=== PATIENT | female | born 1935 | race Two or more races ===

== ENCOUNTER → 2017-03-25 | Outpatient (CLI) | payer MEDICARE, MEDICAID ==
[2017-03-25 10:58] LABS: Basophils # (auto) 0 uL; Basophils % (auto) 0.6 % (0.0-2.0); Eosinophils # (auto) 0.1 uL; Eosinophils % (auto) 1.1 % (0.0-7.0); Hematocrit 44.4 % (36.0-46.0); Lymphocytes # (auto) 2.6 uL; Lymphocytes % (auto) 33.1 % (10.0-50.0); Mean Corpuscular Hemoglobin 30.7 pg (28.0-32.0); Mean Corpuscular Hgb Conc. 33.8 g/dL (32.0-36.0); Mean Corpuscular Volume 90.9 fL (80.0-100.0); Monocytes # (auto) 0.5 uL; Monocytes % (auto) 6.4 % (0.0-12.0); Neutrophils # (auto) 4.5 uL; Neutrophils % (auto) 58.8 % (37.0-80.0); Nucleated Red Blood Cells % 0.1 %; Platelet Count (auto) 211 10^3/uL (140-450); Red Blood Cells 4.88 10^6/uL (4.0-5.20); Red Cell Distribution Width 13.4 % (11.8-14.3); White Blood Cell 7.7 10^3/uL (4.4-10.8)
[2017-03-25 12:47] LABS: Albumin 3.7 g/dL (3.4-5.0); BUN/Creatinine Ratio 29.9; Bilirubin, Total 1.5 mg/dL (0.2-1.0); Calcium 9.2 mg/dL (8.5-10.1); Potassium 4.3 mmol/L (3.5-5.1); Total Protein 7.3 g/dL (6.4-8.2)
== END | disposition home or self-care (01) ==
LOC: LAB 10:23
PROVIDERS: ATTEND Nurse Practitioner
DX: I10 Essential (primary) hypertension (principal); E78.5 Hyperlipidemia, unspecified; M79.1 Myalgia; E16.2 Hypoglycemia, unspecified
CPT/HCPCS: 36415; 80053; 80061; 82306; 83036; 84443; 85025

== ENCOUNTER 2024-04-17 05:30 | Inpatient (IN) | payer MEDICAID, MEDICARE ==
[2024-04-17] VITALS (7 sets, daily range): BP systolic 99–101; BP diastolic 50–58; PULSE 65–73; RESP 15–20; TEMP 98.4–98.9; O2SAT 95–100
[~2024-04-17] VITALS: Ht 157.5 cm; Wt 52.6 kg
[2024-04-17] MEDS ORDERED: MORPHINE SULFATE INJ 2 MG/ml SYRG IV ONE (06:45)
[2024-04-17 07:04] LABS: Basophils # (auto) 0 10 ^3/uL (0-0.2); Eosinophils # (auto) 0 10 ^3/uL (0-0.8); Eosinophils % (auto) 0.2 % (0.0-7.0); Hemoglobin 9.3 g/dL (12.2-16.2); Lymphocytes # (auto) 0.8 10 ^3/uL (0.4-5.4); Lymphocytes % (auto) 5.9 % (10.0-50.0); Mean Corpuscular Hemoglobin 22.5 pg (28.0-32.0); Red Blood Cells 4.13 10^6/uL (4.0-5.20)
[2024-04-17 07:05] LABS: Basophils % (auto) 0.2 % (0.0-2.0); Hematocrit 30.1 % (36.0-46.0); Mean Corpuscular Hgb Conc. 30.9 g/dL (32.0-36.0); Mean Corpuscular Volume 72.8 fL (80.0-100.0); Monocytes # (auto) 0.7 10 ^3/uL (0-1.3); Monocytes % (auto) 5.2 % (0.0-12.0); Neutrophils % (auto) 88.5 % (37.0-80.0); Platelet Count (auto) 410 10^3/uL (140-450); Red Cell Distribution Width 16.2 % (11.8-14.3); White Blood Cell 13.5 10^3/uL (4.4-10.8)
[2024-04-17] MEDS: SODIUM CHLORIDE 0.9% 1,000 ML IV ONE (07:20)
[2024-04-17] MEDS: ONDANSETRON HCL 4 MG/2 ML VIAL IV ONE (07:22)
[2024-04-17] MEDS: MORPHINE SULFATE 4 MG/ML SYR/VIAL IV ONE (07:22)
[2024-04-17 07:55] LABS: Urine Bacteria FEW /hpf (None Seen); Urine Blood 3+ /uL (Negative); Urine Protein, UAD Negative (Negative); Urine Specific Gravity 1.025 (1.001-1.035); Urine Squamous Epithelial Cell FEW /hpf (<5); Urine Urobilinogen Normal (Negative); Urine WBC 1 /HPF (0-5)
[2024-04-17 08:00] LABS: Urine Clarity Hazy (Clear); Urine Color Yellow (Yellow)
--- NOTE | 2024-04-17 10:03 | DVH ---
Procedure: CT CT AB PEL WITH IV CON ONLY 04/17/2024 09:11 AM Indication: lower abdominal pain Comparison Study: None Technique: Axial images were obtained and reformatted in coronal and sagittal planes. All CT scans at this medical facility are performed using dose modulation techniques as appropriate t o a performed exam including the following: Automated exposure control was utilized; adjustment of th e MA and/or KV according to patient size; and use of iterative reconstruction technique. CT Dose: CTDI volume is 8.15 mGy. Dose-length product is 422.91 mGy*cm FINDINGS: Lower chest: Mild left basilar subsegmental atelectasis. No pleural effusion. No pneumothorax. Hepatobiliary: Unremarkable. Spleen: Unremarkable. Pancreas: Unremarkable. Adrenal Glands: Unremarkable. tract: The kidneys are normal in size bilaterally without hydronephrosis or nephrolithiasis. The urinary bladder is unremarkable. GI tract: The stomach is grossly normal in appearance. No evidence of small bowel obstruction. The la rge bowel is unremarkable. Dilated appendix measuring 9 mm in caliber with mural enhancement and mod erate adjacent free fluid which extends to the pelvis the left lower quadrant. No appendicoliths note d. Lymphatics: No mesenteric, retroperitoneal or periportal lymphadenopathy. Vasculature: The abdominal aorta is normal in in caliber. Pelvic Organs: Unremarkable. Bones/soft tissues: No acute abnormality. Other: None. IMPRESSION: 1. Acute non complicated appendicitis. Recommend surgical consultation. Acute Result: Acute appendicitis Findings discussed with BELINDA FONTANEZ at 04/17/2024 09:57 AM, and acknowledged receipt and understandin g of the findings. ..
[2024-04-17] MEDS ORDERED: metroNIDAZOLE 500MG/100ML 100 ML IV ONE (10:15)
[2024-04-17] MEDS ORDERED: ceFAZolin 2 GM/D5W50ml 50 ML IV ONE ×2 (10:15→11:13)
--- NOTE | 2024-04-17 10:23 | ED.PDOC ---
GI ASSESSMENT HPI Comments 19-year-old with a no MHx lives with grandma presents with a chief complaint of abdominal pain x2 months. Symptoms have waxed and waned with no specific pattern but patient reports worsening pain that started yesterday at 8:00 p.m. and has been persistent since Pain is located to the left and right lower quad rants and the pain is described as sharp cramping sensation. Unable to get adequate relief with [id number] pain medications. Patient also notes six vomiting episodes that started this morning at 1:00 a.m.. Associated with mild nausea. She is on her current menstrual cycle. It started on Wednesday Denies sick contact with similar symptoms Denies new foods/medications Denies family history of GI cancer Denies urgency, frequency, hematuria Denies vaginal discharge Chief Complaint: Pelvic Pain Time Seen by MD: 06:31 Reviewed Notes: Nurses Notes, Medications, Allergies Allergies: Coded Allergies: NO KNOWN ALLERGIES (Unverified , 04/17/24) Information Source: Patient Mode of Arrival: Wheelchair All Other Systems: Reviewed and Negative (per hpi) Physical Exam General Appearance: No Apparent Distress, Normal HEENT: Normal ENT Inspection, Pharynx Normal, TMs Normal Neck: Full Range of Motion, Non-Tender, Normal, Normal Inspection Respiratory: Chest Non-Tender, Lungs Clear, No Accessory Muscle Use, No Respiratory Distress, Normal Breath Sounds Cardiovascular: No Murmur, No Gallop, Regular Rate/Rhythm Breast Exam: Deferred Gastrointestinal: No Organomegaly, No Pulsatile Mass, Normal Bowel Sounds, Soft, Tenderness (Lower quads.) Genitalia: Deferred Pelvic: Deferred Rectal: Deferred Extremities: No calf tenderness, Normal capillary refill, Normal inspection, Normal range of motion, Non-tender, No pedal edema Musculoskeletal : Apperance: Normal Neurologic: Alert, No Motor Deficits, Normal Affect, Normal Mood, No Sensory Deficits Cerebellar Function: Normal Reflexes: Normal Skin: Dry, Normal Color, Warm Lymphatic: No Adenopathy Was a procedure done? Was a procedure done?: No GI differential Dx Differential Diagnosis: Appendicitis, Diverticular disease, Gastroenteritis, UTI X-Ray, Labs, Meds, VS Vital Signs Date Time Temp Pulse Resp B/P (MAP) Pulse Ox O2 Delivery O2 Flow Rate FiO2 04/17/24 08:18 61 04/17/24 07:51 62 16 105/56 04/17/24 07:44 73 16 100 Room Air* 0 21 04/17/24 07:44 98.0 73 16 110/59 (76) 100 98.0 04/17/24 07:22 82 15 110/59 04/17/24 06:10 70 15 100 Room Air* 0 21 04/17/24 06:06 97.9 70 15 109/64 (79) 100 97.9 04/17/24 05:44 98.0 64 16 101/46 (64) 100 Lab Test 04/17/24 07:05 04/17/24 06:47 Range/Units Urine Color Yellow Yellow Urine Clarity Hazy H Clear Urine pH 7.0 5.0-9.0 Urine Specific [place] 1.025 1.001-1.035 Urine Protein Negative Negative Urine Ketones 2+ H Negative Urine Blood 3+ H Negative /uL Urine Nitrite Negative Negative Urine Bilirubin Negative Negative Urine Urobilinogen Normal Negative mg/dL Urine Leukocyte Esterase Negative Negative /uL Urine RBC 28 0 - 4 /hpf Urine Microscopic WBC 1 0-5 /HPF Urine Squamous Epithelial Cells Few <5 /hpf Urine Bacteria Few H None Seen /hpf Urine Glucose 2+ H Normal mg/dL Urine Test Negative Negative White Blood Count 13.5 H 4.4-10.8 10^3/uL Red Blood Count 4.13 4.0-5.20 10^6/uL Hemoglobin 9.3 L 12.2-16.2 g/dL Hematocrit 30.1 L 36.0-46.0 % Mean Corpuscular Volume 72.8 L 80.0-100.0 fL Mean Corpuscular Hemoglobin 22.5 L 28.0-32.0 pg Mean Corpuscular Hemoglobin Concent 30.9 L 32.0-36.0 g/dL Red Cell Distribution Width 16.2 H 11.8-14.3 % Platelet Count 410 140-450 10^3/uL Mean Platelet Volume 6.6 L 6.9-10.8 fL Neutrophils (%) (Auto) 88.5 H 37.0-80.0 % Lymphocytes (%) (Auto) 5.9 L 10.0-50.0 % Monocytes (%) (Auto) 5.2 0.0-12.0 % Eosinophils (%) (Auto) 0.2 0.0-7.0 % Basophils (%) (Auto) 0.2 0.0-2.0 % Neutrophils # (Auto) 12.0 H 1.6-8.6 10 ^3/uL Lymphocytes # (Auto) 0.8 0.4-5.4 10 ^3/uL Monocytes # (Auto) 0.7 0-1.3 10 ^3/uL Eosinophils # (Auto) 0 0-0.8 10 ^3/uL Basophils # (Auto) 0 0-0.2 10 ^3/uL Nucleated Red Blood Cells 0.0 % Sodium Level Pending Potassium Level Pending Chloride Level Pending Carbon Dioxide Level Pending Anion Gap Pending Blood Urea Nitrogen Pending Creatinine Pending Glomerular Filtration Rate Calc Pending BUN/Creatinine Ratio Pending Serum Glucose Pending Lactic Acid Level 1.0 0.4-2.0 mmol/L Calcium Level Pending Current Medications Medications (Trade) Dose Ordered Sig/Alexy Route Start Time Stop Time Status Last Admin Sodium Chloride 1,000 ml @ 1,000 mls/hr Q1H ONCE IV 04/17/24 06:45 04/17/24 07:44 DC 04/17/24 07:20 Ondansetron HCl (Zofran) 4 mg ONCE ONCE IV 04/17/24 06:45 04/17/24 06:49 DC 04/17/24 07:22 Morphine Sulfate 4 mg ONCE ONCE IV 04/17/24 07:00 04/17/24 07:01 DC 04/17/24 07:22 X-Ray, Labs, Meds, VS Comment 19-year-old with a no MHx lives with grandma presents with a chief complaint of abdominal pain x2 months. Parents with concern but not limited to overt torsion, abscess, ruptured cyst, diverticulitis, appendicitis Labs and imaging were ordered CT shows appendicitis The patient presents with s/s consistent with dx. Patients work up was remarkable for acute noncomplicated appendicitis In the emergency department received morphine for her pain. Received one bolus normal saline for hydration. Patient was then started on Flagyl and Ancef The patient's workup reveals that surgical consult as needed and will be admitted Patient verbalized understanding of the above and is awaiting further evaluation by the admitting service. Case discussed with Dr Andrews and agrees for admission and ED evaluation. Time of 1ST Reevaluation: 10:15 Reevaluation 1ST: Improved Patient Education/Counseling: Diagnosis, Treatment Family Education/Counseling: Diagnosis, Treatment Departure 1 Departure Time of Disposition: 10:12 Impression: Primary Impression: Appendicitis Qualified Codes: K35.80 - Unspecified acute appendicitis Disposition: 09 ADMITTED INPATIENT Condition: Fair Critical Care Note Critical Care Time?: No Stability Stability form required: No Heart Score Heart Score: Heart Score Response (Comments) Value History N/A 0 EKG N/A 0 Age N/A 0 Risk Factors N/A 0 Troponin N/A 0 Total 0 BELINDA FONTANEZ NP Apr 17, 2024 10:23
[2024-04-17] MEDS ORDERED: SODIUM CHLORIDE 0.9% 1,000 ML IV ONE ×3 (10:30→12:30)
[2024-04-17 10:34] LABS: Chloride 105 mmol/L (98-107); Sodium 137 mmol/L (136-145)
[2024-04-17 10:35] LABS: Anion Gap 10 (5-15); Calcium 9.6 mg/dL (8.7-10.4); Carbon Dioxide 22 mmol/L (20-31)
[2024-04-17 10:40] LABS: BUN/Creatinine Ratio 15.8 (10.0-20.0); Blood Urea Nitrogen 9 mg/dL (9-23)
[2024-04-17 10:41] LABS: Glucose 117 mg/dL (74-106)
[2024-04-17] MEDS: PIPERACILLIN-TAZOB 3.375GM 100 ML IV ONE (11:03)
[2024-04-17] MEDS: IOHEXOL 300 MG/ML 100ML BOTTLE IJ ONE (11:12)
[2024-04-17] MEDS ORDERED: HYDROcodone-ACET 5/325MG TAB PO PRN (11:15)
[2024-04-17] MEDS ORDERED: ONDANSETRON HCL 4 MG/2 ML VIAL IV PRN ×2 (11:15→11:30)
[2024-04-17] MEDS ORDERED: DOCUSATE SOD 100 MG CAP PO PRN (11:15)
[2024-04-17] MEDS ORDERED: ACETAMINOPHEN 325 MG TAB PO PRN ×2 (11:15→11:30)
[2024-04-17] MEDS ORDERED: SODIUM CHLORIDE 0.9% 1,000 ML IV SCH ×2 (11:15→11:30)
--- NOTE | 2024-04-17 11:26 | DVHHP2 ---
History of Present Illness Reason for Visit: Abdominal pain History of Present Illness Betzaida Gutierrez is an 19-year-old female with no significant past medical history, who came in for abdominal pain. Patient states she has had intermittent abdominal pain for about 2 months. She states she went to [facility] the end of January beginning of February and was told something is infected, but she couldn't remember what. Last night about 1999 she was feeling bloated, but not in much pain. Around 010 she was woken up by severe pain with associated nausea and vomiting and came to the ER. Past Surgical History: Other (left breast lumpectomy) Smoke: No ALCOHOL: none Drugs: None Lives: with Family Domestic Violence: Neg Review of Systems Constitutional: No: Fever, Chills, Sweats, Weakness, Malaise, Other Eyes: No: Pain, Vision change, Conjunctivae inflammation, Eyelid inflammation, Other, Redness ENT: No: Ear pain, Ear discharge, Nose pain, Nose discharge, Nose congestion, Mouth pain, Mouth swelling, Throat pain, Throat swelling, Other Respiratory: No: Cough, Dry, Shortness of breath, SOB with excertion, Wheezing, Hemoptysis, Pleuritic Pain, Sputum, Wheezing, Other Cardiovascular: No: Chest Pain, Palpitations, Orthopnea, Paroxysmal Noc. Dyspnea, Edema, Lt Headedness, Other Gastrointestinal: Nausea, Vomiting, Abdominal Pain; No: Diarrhea, Constipation, Melena, Hematochezia, Other Genitourinary: No Dysuria, No Frequency, No Incontinence, No Hematuria, No Retention, No Other Musculoskeletal: No: other, neck pain, shoulder pain, arm pain, back pain, hand pain, leg pain, foot pain Skin: No: Rash, Lesions, Jaundice, Bruising, Other Neurological: No: Weakness, Numbness, Incoordination, Change in speech, Confusion, Seizures, Other Allergies: Coded Allergies: NO KNOWN ALLERGIES (Unverified , 04/17/24) Medications Current Medications Medications Dose Ordered Sig/Alexy Route Start Time Stop Time Status Last Admin Dose Admin Sodium Chloride 1,000 ml @ 100 mls/hr Q10H IV 04/17/24 11:15 UNV Acetaminophen/ Hydrocodone Bitart 1 tab Q4HP PRN PO 04/17/24 11:15 UNV Ondansetron HCl 4 mg Q4HP PRN IV 04/17/24 11:15 UNV Docusate Sodium 100 mg BIDPRN PRN PO 04/17/24 11:15 UNV Acetaminophen 650 mg Q6HP PRN PO 04/17/24 11:15 UNV Piperacillin Sod/ Tazobactam Sod 100 ml @ 25 mls/hr Q8HR IV 04/17/24 14:00 UNV Exam Vital Signs Vital Signs Date Time Temp Pulse Resp B/P (MAP) Pulse Ox O2 Delivery O2 Flow Rate FiO2 04/17/24 08:18 61 04/17/24 07:51 16 105/56 04/17/24 07:44 100 Room Air* 0 21 04/17/24 07:44 98.0 98.0 General Appearance: Alert, Oriented X3, Cooperative, moderate distress HEENT: Atraumatic, PERRLA Respiratory: Clear to auscultation, Normal air movement Cardiovascular: Regular rate, Normal S1, Normal S2, No murmurs Abdominal: Normal bowel sounds, Soft, Other (lower quadrant abdominal pain) Extremities: No clubbing, No cyanosis, No edema, Normal pulses, No tenderness/swelling Skin: No rashes, No breakdown, No significant lesion Neuro: Normal gait, Normal speech, Strength at 5/5 X4 ext Psych/Mental Status: Mental status NL, Mood NL Labs/Xrays Labs Test 04/17/24 07:05 04/17/24 06:47 Range/Units Urine Color Yellow Yellow Urine Clarity Hazy H Clear Urine pH 7.0 5.0-9.0 Urine Specific [place] 1.025 1.001-1.035 Urine Protein Negative Negative Urine Ketones 2+ H Negative Urine Blood 3+ H Negative /uL Urine Nitrite Negative Negative Urine Bilirubin Negative Negative Urine Urobilinogen Normal Negative mg/dL Urine Leukocyte Esterase Negative Negative /uL Urine RBC 28 0 - 4 /hpf Urine Microscopic WBC 1 0-5 /HPF Urine Squamous Epithelial Cells Few <5 /hpf Urine Bacteria Few H None Seen /hpf Urine Glucose 2+ H Normal mg/dL Urine Test Negative Negative White Blood Count 13.5 H 4.4-10.8 10^3/uL Red Blood Count 4.13 4.0-5.20 10^6/uL Hemoglobin 9.3 L 12.2-16.2 g/dL Hematocrit 30.1 L 36.0-46.0 % Mean Corpuscular Volume 72.8 L 80.0-100.0 fL Mean Corpuscular Hemoglobin 22.5 L 28.0-32.0 pg Mean Corpuscular Hemoglobin Concent 30.9 L 32.0-36.0 g/dL Red Cell Distribution Width 16.2 H 11.8-14.3 % Platelet Count 410 140-450 10^3/uL Mean Platelet Volume 6.6 L 6.9-10.8 fL Neutrophils (%) (Auto) 88.5 H 37.0-80.0 % Lymphocytes (%) (Auto) 5.9 L 10.0-50.0 % Monocytes (%) (Auto) 5.2 0.0-12.0 % Eosinophils (%) (Auto) 0.2 0.0-7.0 % Basophils (%) (Auto) 0.2 0.0-2.0 % Neutrophils # (Auto) 12.0 H 1.6-8.6 10 ^3/uL Lymphocytes # (Auto) 0.8 0.4-5.4 10 ^3/uL Monocytes # (Auto) 0.7 0-1.3 10 ^3/uL Eosinophils # (Auto) 0 0-0.8 10 ^3/uL Basophils # (Auto) 0 0-0.2 10 ^3/uL Nucleated Red Blood Cells 0.0 % Sodium Level 137 136-145 mmol/L Potassium Level 4.0 3.5-5.1 mmol/L Chloride Level 105 98-107 mmol/L Carbon Dioxide Level 22 20-31 mmol/L Anion Gap 10 5-15 Blood Urea Nitrogen 9 9-23 mg/dL Creatinine 0.57 0.550-1.02 mg/dL Glomerular Filtration Rate Calc 135 >90 mL/min BUN/Creatinine Ratio 15.8 10.0-20.0 Serum Glucose 117 H 74-106 mg/dL Lactic Acid Level 1.0 0.4-2.0 mmol/L Calcium Level 9.6 8.7-10.4 mg/dL Procedure: CT CT AB PEL WITH IV CON ONLY 04/17/2024 09:11 AM FINDINGS: Lower chest: Mild left basilar subsegmental atelectasis. No pleural effusion. No pneumothorax. Hepatobiliary: Unremarkable. Spleen: Unremarkable. Pancreas: Unremarkable. Adrenal Glands: Unremarkable. tract: The kidneys are normal in size bilaterally without hydronephrosis or nephrolithiasis. The urinary bladder is unremarkable. GI tract: The stomach is grossly normal in appearance. No evidence of small bowel obstruction. The large bowel is unremarkable. Dilated appendix measuring 9 mm in caliber with mural enhancement and moderate adjacent free fluid which extends to the pelvis the left lower quadrant. No appendicoliths noted. Lymphatics: No mesenteric, retroperitoneal or periportal lymphadenopathy. Vasculature: The abdominal aorta is normal in in caliber. Pelvic Organs: Unremarkable. Bones/soft tissues: No acute abnormality. Other: None. IMPRESSION: 1. Acute non complicated appendicitis. Recommend surgical consultation. Acute Result: Acute appendicitis Assessment/Plan Assessment/Plan Assessment: Appendicitis, UTI, Plan: Admit to Med-Surg, Surgical consult, IV antibiotics, IV hydration, Pain management, NPO, Plan discussed with: Patient My Orders Orders - JEAN PIERRE WEBBER Procedure Category Date Status Time Admit ADMIT 04/17/24 Transmitted 11:09 Code Status CODE 04/17/24 Transmitted 11:09 Sodium Chloride 0.9% PHA 04/17/24 Logged 11:15 Hydrocodone-Acet PHA 04/17/24 Logged 5/325mg Tab ([place] 11:15 Ondansetron Hcl PHA 04/17/24 Logged (Zofran) 11:15 Docusate Sodium PHA 04/17/24 Logged Capsule (Colace 11:15 Complete Blood Count LAB 04/18/24 Verified 04:00 Comprehensive LAB 04/18/24 Verified Metabolic Panel 04:00 Condition: Serious KAYLEY 04/17/24 In Process 11:09 Acetaminophen Tablet PHA 04/17/24 Logged (Tylenol Tablet) 11:15 Zosyn Extended PHA 04/17/24 Transmitted Infusion 14:00 Date of Service: Apr 17, 2024 Billing Provider: JEAN PIERRE WEBBER Common Visit Codes: [id number] INP/OBS CARE (HIGH) JEAN PIERRE WEBBER Apr 17, 2024 11:26
[2024-04-17] MEDS: metroNIDAZOLE 500MG/100ML 100 ML IV ONE (11:50)
--- NOTE | 2024-04-17 12:16 | DVHINCON2 ---
Date of service: Apr 17, 2024 History of Present Illness 19-year-old otherwise healthy female complaining of one day history of bilateral lower quadrant abdominal pain especially in the right lower quadrant associated with nausea. Patient denies any fevers or chills. Patient had a similar pain in the past was seen at [facility]. At the time she was told that she had some kind of an inflammation that was not appendicitis was given oral antibioti cs which resolved. Past Medical History None Past Surgical History Left breasts biopsy Family History Noncontributory Social History No alcohol, tobacco, IV drug use Allergies: Coded Allergies: NO KNOWN ALLERGIES (Unverified , 04/17/24) Current Medications Current Medications Medications (Trade) Dose Ordered Sig/Alexy Route PRN Reason Start Time Stop Time Status Last Admin Sodium Chloride 1,000 ml @ 100 mls/hr Q10H IV 04/17/24 11:15 04/17/24 11:25 DC Acetaminophen/ Hydrocodone Bitart ([place] 5/325MG Tab) 1 tab Q4HP PRN PO MODERATE PAIN (4-6 PAIN SCALE) 04/17/24 11:15 04/17/24 11:25 DC Ondansetron HCl (Zofran) 4 mg Q4HP PRN IV NAUSEA / VOMITING 04/17/24 11:15 04/17/24 11:25 DC Docusate Sodium (Colace Capsule) 100 mg BIDPRN PRN PO FOR CONSTIPATION 04/17/24 11:15 04/17/24 11:25 DC Acetaminophen (Tylenol Tablet) 650 mg Q6HP PRN PO PAIN SCALE 1-3 OR TEMP>100.4 04/17/24 11:15 04/17/24 11:25 DC Piperacillin Sod/ Tazobactam Sod 100 ml @ 25 mls/hr Q8HR IV 04/17/24 14:00 04/17/24 11:25 DC Morphine Sulfate 2 mg Q4HPRN PRN IV SEVERE PAIN (7-10 PAIN SCALE) 04/17/24 11:30 Ondansetron HCl (Zofran) 4 mg Q4HP PRN IV NAUSEA / VOMITING 04/17/24 11:30 Piperacillin Sod/ Tazobactam Sod 100 ml @ 25 mls/hr Q8H IV 04/17/24 20:00 Sodium Chloride 1,000 ml @ 100 mls/hr Q10H IV 04/17/24 11:30 UNV Acetaminophen/ Hydrocodone Bitart ([place] 5/325MG Tab) 1 tab Q4HP PRN PO MODERATE PAIN (4-6 PAIN SCALE) 04/17/24 11:30 Docusate Sodium (Colace Capsule) 100 mg BIDPRN PRN PO FOR CONSTIPATION 04/17/24 11:30 Acetaminophen (Tylenol Tablet) 650 mg Q6HP PRN PO PAIN SCALE 1-3 OR TEMP>100.4 04/17/24 11:30 Vital Signs Vital Signs Date Time Temp Pulse Resp B/P (MAP) Pulse Ox O2 Delivery O2 Flow Rate FiO2 04/17/24 10:00 71 16 93/87 (89) 99 04/17/24 07:44 Room Air* 0 21 04/17/24 07:44 98.0 98.0 Physical Exam GEN: Age-appropriate female in no acute distress. Alert. HEENT: Normocephalic atraumatic. Moist mucous membranes. Anicteric sclerae. CV: RRR Respiratory: CTAB ABD: Bilateral lower quadrant tenderness to palpation especially in the right lower quadrant with localized guarding. Nondistended. CT of the abdomen and pelvis: Dilated appendix measuring 9 mm with mural enhancement and moderate adjacent free fluid. No appendicoliths. Consistent with acute uncomplicated appendicitis. Labs/Diagnostic Data Labs Test 04/17/24 07:05 04/17/24 06:47 Range/Units Urine Color Yellow Yellow Urine Clarity Hazy H Clear Urine pH 7.0 5.0-9.0 Urine Specific [place] 1.025 1.001-1.035 Urine Protein Negative Negative Urine Ketones 2+ H Negative Urine Blood 3+ H Negative /uL Urine Nitrite Negative Negative Urine Bilirubin Negative Negative Urine Urobilinogen Normal Negative mg/dL Urine Leukocyte Esterase Negative Negative /uL Urine RBC 28 0 - 4 /hpf Urine Microscopic WBC 1 0-5 /HPF Urine Squamous Epithelial Cells Few <5 /hpf Urine Bacteria Few H None Seen /hpf Urine Glucose 2+ H Normal mg/dL Urine Test Negative Negative White Blood Count 13.5 H 4.4-10.8 10^3/uL Red Blood Count 4.13 4.0-5.20 10^6/uL Hemoglobin 9.3 L 12.2-16.2 g/dL Hematocrit 30.1 L 36.0-46.0 % Mean Corpuscular Volume 72.8 L 80.0-100.0 fL Mean Corpuscular Hemoglobin 22.5 L 28.0-32.0 pg Mean Corpuscular Hemoglobin Concent 30.9 L 32.0-36.0 g/dL Red Cell Distribution Width 16.2 H 11.8-14.3 % Platelet Count 410 140-450 10^3/uL Mean Platelet Volume 6.6 L 6.9-10.8 fL Neutrophils (%) (Auto) 88.5 H 37.0-80.0 % Lymphocytes (%) (Auto) 5.9 L 10.0-50.0 % Monocytes (%) (Auto) 5.2 0.0-12.0 % Eosinophils (%) (Auto) 0.2 0.0-7.0 % Basophils (%) (Auto) 0.2 0.0-2.0 % Neutrophils # (Auto) 12.0 H 1.6-8.6 10 ^3/uL Lymphocytes # (Auto) 0.8 0.4-5.4 10 ^3/uL Monocytes # (Auto) 0.7 0-1.3 10 ^3/uL Eosinophils # (Auto) 0 0-0.8 10 ^3/uL Basophils # (Auto) 0 0-0.2 10 ^3/uL Nucleated Red Blood Cells 0.0 % Sodium Level 137 136-145 mmol/L Potassium Level 4.0 3.5-5.1 mmol/L Chloride Level 105 98-107 mmol/L Carbon Dioxide Level 22 20-31 mmol/L Anion Gap 10 5-15 Blood Urea Nitrogen 9 9-23 mg/dL Creatinine 0.57 0.550-1.02 mg/dL Glomerular Filtration Rate Calc 135 >90 mL/min BUN/Creatinine Ratio 15.8 10.0-20.0 Serum Glucose 117 H 74-106 mg/dL Lactic Acid Level 1.0 0.4-2.0 mmol/L Calcium Level 9.6 8.7-10.4 mg/dL Assessment 1. acute appendicitis Plan/Recommendation 1. Laparoscopic appendectomy possible open surgery Informed consent: The surgery and its risks including but not limited to infection, bleeding requiring possible blood transfusion with the risk of hepatitis or HIV infection, possible open surgery, possibility that the abdominal pain is caused by different intra-abdominal pathology other than acute appendicitis in which case we will proceed with the appendectomy if it is safe to do so and then treat the problem according to intraoperative findings which could be either conservative or surgical were explained to the patient. All questions were answered to her satisfaction. She expressed verbal understanding and wished to proceed with the surgery. Plan discussed with: Patient ELVA CAUSEY MD Apr 17, 2024 12:16
[2024-04-17] MEDS ORDERED: SUCCINYLCHOLINE CHLORIDE 20 MG/ML 10ML VIAL IV ONE (12:49)
[2024-04-17] MEDS ORDERED: MEPERIDINE HCL (25 MG/ML) 1ML VIAL ONE (12:51)
[2024-04-17] MEDS ORDERED: fentaNYL CITRATE 100 MCG/2 ML VL ONE (12:51)
[2024-04-17] MEDS ORDERED: PROPOFOL 10 MG/ML 20 ML IV ONE (12:52)
--- NOTE | 2024-04-17 13:57 | DVHOP2 ---
Operative Report - 2 Report Details Date: 04/17/24 Preop Diagnosis: 1. Acute appendicitis Postop Diagnosis: 1. Same Surgeon: Elva Vigil MD Rotating Equipment Specialist: None Anesthesiologist: Dr. Barajas Anesthesia: General, Local Consent: The surgery and its risks including but not limited to infection, bleeding requiring possible blood transfusion with the risk of hepatitis or HIV infection, possible open surgery, possibility that the abdominal pain is caused by different intra-abdominal pathology other than acute appendicitis in which case we will proceed with the appendectomy if it is safe to do so and then treat the problem according to intraoperative findings were explained to the patient. All questions were answered to her satisfaction. She expressed verbal understanding and wished to proceed with the surgery. Complications: None Estimated Blood Loss: 10 mL Fluids: 800 mL Name of Procedure Performed Laparoscopic appendectomy Procedure Details Procedure Details: After induction of general anesthesia, a Bowie catheter was placed by the OR nursing staff. Patient's abdomen was then prepped and draped in standard surgical fashion. A small infraumbilical incision was made and this incision was taken through the abdominal wall down to the fascia which was opened sharply. Peritoneum was then bluntly divided gaining access to the intra-ab dominal cavity. Interrupted 0 Vicryl sutures were placed through the fascial incision and using an open technique, Marisol trocar was introduced and secured using the Vicryl sutures. Abdomen was insufflated to 15 mmHg and camera was inserted. Visual examination of the intestine under the fascial incision appeared normal without injury. Under direct visualization, a 5 mm bladeless trocar was placed in the left lower quadrant and a 2nd 5 mm bladeless trocar was placed in the suprapubic region both under direct visualization. Examination of the right lower quadrant revealed very dilated and inflamed appendix without gross perforation. Minimal dissection was performed to free up the base of the appendix and using LigaSure device the mesoappendix was divided up to the base of the appendix. The base of the appendix was then stapled and divided using endo stapler without complication. The appendix was then removed from the abdominal cavity using an endo pouch bag and sent off the surgical field. Abdomen was then re-insufflated and staple line was examined. There was no bleeding or leaks seen from the staple line. There was small amount of serosanguineous fluid collected in the pelvis and this was aspirated. Pelvic area was then well irrigated until fluid was clear. Trocars were then removed under direct visualization as the abdomen was deflated. Additional interrupted 0 Vicryl sutures were placed through the infraumbilical fascial incision and the sutures were tied down closing off the infraumbilical fascia. Surgical sites were irrigated injected with 15 mL of 1% lidocaine with epinephrine. Skin incisions were closed using 4-0 Monocryl sutures in subcuticular fashion. Dermabond was applied. Sponge, needle, instrument count at the end of the case were reported to be correct by the nursing staff. Patient tolerated procedure well and at the time of dictation, she is being awakened from general anesthesia. Specimen: Appendix Condition Stable Disposition Still a Patient ELVA VIGIL MD Apr 17, 2024 13:57
[2024-04-17] MEDS ORDERED: PIPERACILLIN-TAZOB 3.375GM 100 ML IV SCH (14:00)
[2024-04-17] MEDS: HYDROmorphone HCL 2 MG/ML VL/or syr IV PRN (14:15)
[2024-04-17] MEDS ORDERED: hydrALAZINE HCL 20 MG/ML VL IV PRN (14:15)
[2024-04-17] MEDS ORDERED: MORPHINE SULFATE 4 MG/ML SYR/VIAL IV PRN (14:15)
[2024-04-17] MEDS ORDERED: ePHEDrine SULFATE 50 MG/ML AMP IV PRN (14:15)
[2024-04-17] MEDS ORDERED: KETOROLAC TROMETH 30 MG/ML 1ML VIAL IV ONE (14:15)
[2024-04-17] MEDS ORDERED: MIDAZOLAM HCL 2MG/2ML 2ml VIAL (1mg/ml) IV PRN (14:15)
[2024-04-17] MEDS ORDERED: ONDANSETRON HCL 4 MG/2 ML VIAL IV ONE (14:15)
[2024-04-17] MEDS ORDERED: HYDROmorphone HCL 2 MG/ML VL/or syr ONE (14:16)
[2024-04-17] MEDS: LIDOCAINE W/ EPINEPHRINE 1% 20ML VIAL ONE (14:17)
[2024-04-17] MEDS ORDERED: ROCURONIUM 10MG/ML 10ML VIAL IV ONE (14:37)
[2024-04-17] MEDS: DOCUSATE SOD 100 MG CAP PO PRN (18:34)
[2024-04-17] MEDS: HYDROcodone-ACET 5/325MG TAB PO PRN (18:34)
[2024-04-17] MEDS: PIPERACILLIN-TAZOB 3.375GM 100 ML IV SCH (20:26)
[2024-04-18] VITALS (7 sets, daily range): BP systolic 94–105; BP diastolic 43–52; PULSE 57–71; RESP 16–20; TEMP 97.9–98.7; O2SAT 95–99
[2024-04-18] MEDS: SODIUM CHLORIDE 0.9% 1,000 ML IV SCH (03:20)
[2024-04-18 06:41] LABS: Alanine Aminotransferase 29 U/L (7-40); Alkaline Phosphatase 54 U/L (46-116); Anion Gap 9 (5-15); Calcium 9.2 mg/dL (8.7-10.4); Carbon Dioxide 25 mmol/L (20-31); Chloride 106 mmol/L (98-107); Potassium 4.1 mmol/L (3.5-5.1); Sodium 140 mmol/L (136-145)
[2024-04-18 06:42] LABS: Aspartate Aminotransferase 18 U/L (13-40)
[2024-04-18 06:43] LABS: Bilirubin, Total 0.5 mg/dL (0.2-1.0); Total Protein 6.4 g/dL (5.7-8.2)
[2024-04-18 06:45] LABS: BUN/Creatinine Ratio 8.5 (10.0-20.0); Blood Urea Nitrogen < 5 mg/dL (9-23); Glucose 119 mg/dL (74-106)
[2024-04-18 06:52] LABS: Basophils # (auto) 0 10 ^3/uL (0-0.2); Eosinophils # (auto) 0 10 ^3/uL (0-0.8); Hematocrit 26.8 % (36.0-46.0); Lymphocytes # (auto) 1.1 10 ^3/uL (0.4-5.4); Monocytes # (auto) 0.6 10 ^3/uL (0-1.3); Monocytes % (auto) 6.5 % (0.0-12.0); Neutrophils # (auto) 7.7 10 ^3/uL (1.6-8.6); Red Blood Cells 3.67 10^6/uL (4.0-5.20); White Blood Cell 9.4 10^3/uL (4.4-10.8)
[2024-04-18 06:55] LABS: Basophils % (auto) 0.1 % (0.0-2.0); Hemoglobin 8.4 g/dL (12.2-16.2); Lymphocytes % (auto) 11.7 % (10.0-50.0); Mean Corpuscular Hgb Conc. 31.4 g/dL (32.0-36.0); Neutrophils % (auto) 81.7 % (37.0-80.0); Nucleated Red Blood Cells % 0.1 %; Platelet Count (auto) 374 10^3/uL (140-450); Red Cell Distribution Width 16.1 % (11.8-14.3)
[2024-04-18] MEDS: MORPHINE SULFATE INJ 2 MG/ml SYRG IV PRN (09:19)
--- NOTE | 2024-04-18 11:13 | DVHPN2 ---
Progress Note Date Seen: Apr 18, 2024 Medical Necessity Reason Pt with a Central, PICC or Fol: No Subjective Patient reports: No new complaints Review of Systems: HEENT:Normal, CVS:Normal, RESPIRATORY:Normal, GI:Normal, :Normal, MSK:Normal, NEURO:Normal Objective vital signs Vital Sign Date Time Temp Pulse Resp B/P (MAP) Pulse Ox O2 Delivery O2 Flow Rate FiO2 04/18/24 09:19 72 18 124/78 04/18/24 09:00 98.3 99 98.3 04/17/24 20:00 Room Air* 0 21 Total Intake and Output 04/17/24 04/17/24 04/18/24 15:00 23:00 07:00 Intake Total 1100 ml 300 ml 400 ml Balance 1100 ml 300 ml 400 ml medications Current Medications Medications Dose Ordered Sig/Alexy Route Start Time Stop Time Status Last Admin Dose Admin Morphine Sulfate 2 mg Q4HPRN PRN IV 04/17/24 11:30 04/18/24 09:19 2 MG Ondansetron HCl 4 mg Q4HP PRN IV 04/17/24 11:30 Piperacillin Sod/ Tazobactam Sod 100 ml @ 25 mls/hr Q8H IV 04/17/24 20:00 04/18/24 03:45 25 MLS/HR Sodium Chloride 1,000 ml @ 100 mls/hr Q10H IV 04/17/24 11:30 Acetaminophen/ Hydrocodone Bitart 1 tab Q4HP PRN PO 04/17/24 11:30 04/18/24 02:38 1 TAB Docusate Sodium 100 mg BIDPRN PRN PO 04/17/24 11:30 04/17/24 18:34 100 MG Acetaminophen 650 mg Q6HP PRN PO 04/17/24 11:30 Sodium Chloride 1,000 ml @ 75 mls/hr [id number] IV 04/17/24 14:00 Examination: GENERAL:Normal, HEENT:Normal, NECK:Normal, LUNGS:Normal, CVS:Normal, ABDOMEN:Normal, MSK:Normal, SKIN:Normal, NEURO:Normal, :Normal laboratory and microbiology Laboratory Tests 04/18/24 05:08 Test 04/18/24 05:08 Range/Units Serum Glucose 119 H 74-106 mg/dL Problem List/Assessment/Plan Problem List/Assessment/Plan #1 sepsis with acute appy s/p surg: full liquid, ivf #2 anemia; check iron panel, iv iron Plan discussed with: Patient Date of Service: Apr 18, 2024 Billing Provider: ZENOBIA MENDOZA MD Common Visit Codes: [id number] INP/OBS CARE(HIGH) ZENOBIA MENDOZA MD Apr 18, 2024 11:13
--- NOTE | 2024-04-18 11:43 | DVHPN2 ---
Progress Note - Dictate Date Seen: Apr 18, 2024 Medical Necessity Reason Pt with a Central, PICC or Fol: No Subjective E: no major events o/n. no complaints. noemí clear liquid well. vital signs Vital Sign Date Time Temp Pulse Resp B/P (MAP) Pulse Ox O2 Delivery O2 Flow Rate FiO2 04/18/24 09:19 72 18 124/78 04/18/24 09:00 98.3 99 98.3 04/17/24 20:00 Room Air* 0 21 Total Intake and Output 04/17/24 04/17/24 04/18/24 15:00 23:00 07:00 Intake Total 1100 ml 300 ml 400 ml Balance 1100 ml 300 ml 400 ml medications Current Medications Medications Dose Ordered Sig/Alexy Route Start Time Stop Time Status Last Admin Dose Admin Morphine Sulfate 2 mg Q4HPRN PRN IV 04/17/24 11:30 04/18/24 09:19 2 MG Ondansetron HCl 4 mg Q4HP PRN IV 04/17/24 11:30 Sodium Chloride 1,000 ml @ 100 mls/hr Q10H IV 04/17/24 11:30 Acetaminophen/ Hydrocodone Bitart 1 tab Q4HP PRN PO 04/17/24 11:30 04/18/24 02:38 1 TAB Docusate Sodium 100 mg BIDPRN PRN PO 04/17/24 11:30 04/17/24 18:34 100 MG Acetaminophen 650 mg Q6HP PRN PO 04/17/24 11:30 Sodium Chloride 1,000 ml @ 75 mls/hr [id number] IV 04/17/24 14:00 Cefazolin Sodium 50 ml @ 100 mls/hr Q8HR IV 04/18/24 14:00 UNV Iron Sucrose 110 ml @ 110 mls/hr DAILY@1200 IV 04/18/24 12:00 04/22/24 12:59 UNV objective GEN: NAD ABD: surgical site clean. laboratory and microbiology Laboratory Tests 04/18/24 05:08 Test 04/18/24 05:08 Range/Units Serum Glucose 119 H 74-106 mg/dL Assessment/Plan A: 1. s/p lap appendectomy POD #1 stable. P: 1. stable from surgery POV 2. dc per hospitalist 3. ok to shower and get incisions wet 4. call [phone] for f/u appt. Plan discussed with: Patient ELVA CAUSEY MD Apr 18, 2024 11:43
[2024-04-18 11:47] LABS: % Iron Saturation 4.8 % (15-50)
[2024-04-18] MEDS: ceFAZolin 1GM/50ML 50 ML IV SCH (15:11)
[2024-04-18] MEDS: IRON SUCROSE COMPLEX 110 ML IV SCH (15:12)
[2024-04-18 23:07] LABS: Chlamydia Trachomatis, NAA Negative (Negative); Neisseria gonorrhoeae, NAA Negative (Negative)
[2024-04-19 01:00] VITALS: BP 102/45; PULSE 66; RESP 17; TEMP 98.2; O2SAT 96
[2024-04-19 05:00] VITALS: BP_SYST 102; BP_SYST 137; BP_DIAS 47; BP_DIAS 84; PULSE 60; PULSE 85; RESP 16; RESP 17; TEMP 98.2; TEMP 98.3; O2SAT 100; O2SAT 98
[2024-04-19 07:53] LABS: Eosinophils # (auto) 0.1 10 ^3/uL (0-0.8); Monocytes # (auto) 0.6 10 ^3/uL (0-1.3); Nucleated Red Blood Cells % 0.1 %; White Blood Cell 6.1 10^3/uL (4.4-10.8)
[2024-04-19 07:54] LABS: Anion Gap 9 (5-15); Carbon Dioxide 26 mmol/L (20-31); Potassium 3.8 mmol/L (3.5-5.1); Sodium 143 mmol/L (136-145)
[2024-04-19 07:55] LABS: Basophils # (auto) 0.1 10 ^3/uL (0-0.2); Basophils % (auto) 0.8 % (0.0-2.0); Eosinophils % (auto) 2.3 % (0.0-7.0); Hematocrit 25.9 % (36.0-46.0); Hemoglobin 8.1 g/dL (12.2-16.2); Lymphocytes # (auto) 2.6 10 ^3/uL (0.4-5.4); Lymphocytes % (auto) 42.7 % (10.0-50.0); Mean Corpuscular Hgb Conc. 31.4 g/dL (32.0-36.0); Mean Corpuscular Volume 73.3 fL (80.0-100.0); Neutrophils # (auto) 2.8 10 ^3/uL (1.6-8.6); Neutrophils % (auto) 45.2 % (37.0-80.0); Platelet Count (auto) 349 10^3/uL (140-450); Red Blood Cells 3.54 10^6/uL (4.0-5.20); Red Cell Distribution Width 16.2 % (11.8-14.3)
[2024-04-19 08:00] VITALS: PULSE 65; RESP 18; O2SAT 97
[2024-04-19 08:00] LABS: Glucose 90 mg/dL (74-106)
[2024-04-19 08:07] LABS: Chloride 108 mmol/L (98-107)
[2024-04-19 09:00] VITALS: BP 102/66; PULSE 75; RESP 16; TEMP 98; O2SAT 95
--- NOTE | 2024-04-19 10:59 | DVHDS2 ---
Discharge Summary Date of Admission Apr 17, 2024 at 11:09 Date of Discharge: Apr 19, 2024 Labs/Diagnostic Data: Laboratory Results Test 04/19/24 06:32 04/18/24 05:08 04/17/24 07:05 04/17/24 06:47 White Blood Count 6.1 10^3/uL (4.4-10.8) Red Blood Count 3.54 10^6/uL (4.0-5.20) Hemoglobin 8.1 g/dL (12.2-16.2) Hematocrit 25.9 % (36.0-46.0) Mean Corpuscular Volume 73.3 fL (80.0-100.0) Mean Corpuscular Hemoglobin 23.0 pg (28.0-32.0) Mean Corpuscular Hemoglobin Concent 31.4 g/dL (32.0-36.0) Red Cell Distribution Width 16.2 % (11.8-14.3) Platelet Count 349 10^3/uL (140-450) Mean Platelet Volume 7.0 fL (6.9-10.8) Neutrophils (%) (Auto) 45.2 % (37.0-80.0) Lymphocytes (%) (Auto) 42.7 % (10.0-50.0) Monocytes (%) (Auto) 9.0 % (0.0-12.0) Eosinophils (%) (Auto) 2.3 % (0.0-7.0) Basophils (%) (Auto) 0.8 % (0.0-2.0) Neutrophils # (Auto) 2.8 10 ^3/uL (1.6-8.6) Lymphocytes # (Auto) 2.6 10 ^3/uL (0.4-5.4) Monocytes # (Auto) 0.6 10 ^3/uL (0-1.3) Eosinophils # (Auto) 0.1 10 ^3/uL (0-0.8) Basophils # (Auto) 0.1 10 ^3/uL (0-0.2) Nucleated Red Blood Cells 0.1 % Sodium Level 143 mmol/L (136-145) Potassium Level 3.8 mmol/L (3.5-5.1) Chloride Level 108 mmol/L (98-107) Carbon Dioxide Level 26 mmol/L (20-31) Anion Gap 9 (5-15) Blood Urea Nitrogen 6 mg/dL (9-23) Creatinine 0.61 mg/dL (0.550-1.02) Glomerular Filtration Rate Calc 133 mL/min (>90) Serum Glucose 90 mg/dL (74-106) Calcium Level 9.0 mg/dL (8.7-10.4) Iron Level 17 ug/dL (50-170) Total Iron Binding Capacity 353 ug/dL (250-425) Percent Iron Saturation 4.8 % (15-50) Total Bilirubin 0.5 mg/dL (0.2-1.0) Aspartate Amino Transferase (AST) 18 U/L (13-40) Alanine Aminotransferase (ALT) 29 U/L (7-40) Alkaline Phosphatase 54 U/L (46-116) Total Protein 6.4 g/dL (5.7-8.2) Albumin 4.0 g/dL (3.2-4.8) Vitamin B12 Level 457 pg/mL (211-911) Urine Color Yellow (Yellow) Urine Clarity Hazy (Clear) Urine pH 7.0 (5.0-9.0) Urine Specific [place] 1.025 (1.001-1.035) Urine Protein Negative (Negative) Urine Ketones 2+ (Negative) Urine Blood 3+ /uL (Negative) Urine Nitrite Negative (Negative) Urine Bilirubin Negative (Negative) Urine Urobilinogen Normal mg/dL (Negative) Urine Leukocyte Esterase Negative /uL (Negative) Urine RBC 28 /hpf (0 - 4) Urine Microscopic WBC 1 /HPF (0-5) Urine Squamous Epithelial Cells Few /hpf (<5) Urine Bacteria Few /hpf (None Seen) Urine Glucose 2+ mg/dL (Normal) Urine Test Negative (Negative) Chlamydia trachomatis (ADA) Negative (Negative) Neisseria gonorrhoeae (ADA) Negative (Negative) Lactic Acid Level 1.0 mmol/L (0.4-2.0) Other Laboratory Tests 04/19/24 06:32 Brief Hx & Hospital Course: see dictated note Condition at Discharge: Good Final Diagnosis/Problems List acute appy anemia Discharge Disposition: Home Discharge Instruct/Medications Diet: Regular Activity: No Restrictions, As Tolerated Follow Up/Referral: schedule appt with surgery in 1 wk Medications: script to pharmacy Discharge Statement: "Patient was advised to return to the ER or call 911 if any headaches, dizziness, shortness of breath, chest pain, abdominal pain, bleeding, fevers, or worsening of medical condition. Patient was counseled about treatment plan, medications, possible side effects, patientverbalized understanding. All questions were answered to the best of my ability. This discharge took greater then 30 minutes in planning, reviewing documentation, counseling the patient, and discussing with other team members." ASSESSMENT ASSESSMENT Assessment acute appy anemia Date of Service: Apr 19, 2024 Billing Provider: ZENOBIA MENDOZA MD Common Visit Codes: 67978-MEM/OBS DISCH DAY >30min ZENOBIA MENDOZA MD Apr 19, 2024 10:59
[2024-04-19] MEDS ORDERED: TRAM-626 PO (11:04)
[2024-04-19] MEDS ORDERED: CEPH500C PO (11:04)
[2024-04-19] MEDS ORDERED: FER325T PO (11:04)
--- NOTE | 2024-04-19 11:17 | DVHDS ---
DATE OF DISCHARGE: 04/19/2024 HISTORY OF PRESENT ILLNESS: The patient is an 19-year-old lady who was admitted with complaints of abdominal pain. HOSPITAL COURSE: The patient had a CT of abdomen and pelvis that showed evidence of acute appendicitis. The patient underwent laparoscopic appendectomy by Dr. Vigil on 04/17/2024. The patient was also noted to be anemic with evidence of iron deficiency. The patient will now be discharged home. She has had bowel activity. The patient will be placed on Keflex 500 mg t.i.d. for 7 days, tramadol p.r.n. for pain, and iron sulfate 325 mEq p.o. daily. She will follow up with her primary and with Dr. Vigil in the next 1-2 weeks. FINAL DIAGNOSES: Therefore, * Sepsis with acute appendicitis, status post laparoscopic appendectomy. * Anemia with iron deficiency. Time spent in discharge planning and review of plan with the patient and nursing was 38 minutes. MD PARIS Pascual/PRISCILA TID: [id number] RECEIPT: [id number]
[2024-04-19 11:43] LABS: BUN/Creatinine Ratio 9.8 (10.0-20.0); Blood Urea Nitrogen 6 mg/dL (9-23)
[2024-04-19 13:00] VITALS: BP 104/64; PULSE 70; RESP 20; TEMP 97.4; O2SAT 96
== END 2024-04-19 14:30 | disposition home or self-care (01) | DRG 710 ==
LOC: ER 05:30 → OVERFLOW 11:09 → ER 11:14 → EAST 15:10
PROVIDERS: ADMIT Internal Medicine; ATTEND Internal Medicine
PROC: 0W9J4ZZ Drainage of Pelvic Cavity, Percutaneous Endoscopic Approach (ICD-10-PCS; 2024-04-17)
PROC: 0DTJ4ZZ Resection of Appendix, Percutaneous Endoscopic Approach (ICD-10-PCS; principal; 2024-04-17 12:58)
DX: A41.9 Sepsis, unspecified organism (principal); K35.80 Unspecified acute appendicitis; N39.0 Urinary tract infection, site not specified; D50.9 Iron deficiency anemia, unspecified; Z79.899 Other long term (current) drug therapy; Z90.49 Acquired absence of other specified parts of digestive tract
CPT/HCPCS: 36415; 74177; 80048; 80053; 81001; 81025; 82607; 83540; 83550; 83605; 85025; 96361; 96374; 96375; G0378; J0330; J1100; J1756; J2405; J2543; J2704; J3490

== ENCOUNTER 2024-04-21 18:20 | Emergency (ER) | payer MEDICAID ==
[~2024-04-21] VITALS: Ht 157.5 cm; Wt 56.0 kg
[~2024-04-21 18:20] MED LIST: CEPH500C PO; FER325T PO; TRAM-626 PO
--- NOTE | 2024-04-21 19:17 | ED.PDOC ---
History of Present Illness HPI Comments 19 year old female came to ER for wound check. Patient was discharged 2 days ago and was diagnosed with 1. Sepsis with acute appendicitis, status post laparoscopic appendectomy, 2. Anemia with iron deficiency. Was sent home 2 days ago on Keflex. Noted that the IV insertion site at the right antecubital area was inflamed, swollen and tender to touch. No fever noted. Chief Complaint: Wound check Time Seen by MD: 19:17 Reviewed Notes: Nurses Notes Allergies: Coded Allergies: NO KNOWN ALLERGIES (Unverified , 04/17/24) Home Meds Active Scripts Ferrous Sulfate (FERROUS SULFATE) 325 Mg Tb, 1 TAB PO DAILY for 30 Days, #30 TAB 3 Refills Prov:ZENOBIA MENDOZA MD 04/19/24 Tramadol HCl (Tramadol HCl) 50 Mg Tab, 50 MG PO TIDP PRN for 5 Days, #15 TAB Prov:ZENOBIA MENDOZA MD 04/19/24 Cephalexin Monohydrate (Cephalexin) 500 Mg Cap, 1 CAP PO TID for 7 Days, #21 CAP Prov:ZENOBIA MENDOZA MD 04/19/24 Information Source: Patient, Relative (Grand mother) Mode of Arrival: Ambulatory Severity: Moderate Timing: Days Duration: Since onset Past Medical History PAST MEDICAL HISTORY: Anemia Surgical History: Appendectomy Surgical History (Other): Laparoscopic appendectomy CAFE HELPER History: Denies all CAFE HELPER Hx Family History Family History: Reviewed,noncontributory to illness Social History Smoker: Non-Smoker Alcohol: Denies ETOH Use Drugs: Denies Drug Use Lives In: Home Constitutional: denies: chills, diaphoresis, fatigue, fever, malaise, sweats, weakness, others EENTM: denies: blurred vision, double vision, ear bleeding, ear discharge, ear drainage, ear pain, ear ringing, eye pain, eye redness, hearing loss, mouth pain, mouth swelling, nasal discharge, nose bleeding, nose congestion, nose pain, photophobia, tearing, throat pain, throat swelling, voice changes, others Respiratory: denies: cough, hemoptysis, orthopnea, SOB at rest, shortness of breath, SOB with excertion, stridor, wheezing, others Cardiovascular: denies: chest pain, dizzy spells, diaphoresis, Dyspnea on exertion, edema, irregular heart beat, left arm pain, lightheadedness, palpitations, PND, syncope, others Gastrointestinal: denies: abdomen distended, abdominal pain, blood streaked bowels, constipated, diarrhea, dysphagia, difficulty swallowing, hematemesis, melena, nausea, poor appetite, poor fluid intake, rectal bleeding, rectal pain, vomiting, others Genitourinary: denies: abnormal vagina bleeding, burning, dyspareunia, dysuria, flank pain, frequency, hematuria, incontinence, pain, , vagina discharge, urgency, others Neurological: denies: dizziness, fainting, headache, left sided numbness, left sided weakness, numbness, paresthesia, pre-existing deficit, right sided numbness, right sided weakness, seizure, speech problems, tingling, tremors, weakness, others Integumetry: reports: others (inflammation right antecubital area); denies: bruises, change in color, change in hair/nails, dryness, laceration, lesions, lumps, rash, wounds Allergic/Immunocompromised: denies: Difficulty Healing, Frequent Infections, Hives, Itching, others Hematologic/Lymphatic: denies: anemia, blood clots, easy bleeding, easy bruising, swollen glands, others Endocrine: denies: excessive hunger, excessive sweating, excessive thirst, excessive urination, flushing, intolerance to cold, intolerance to heat, unexplained weight gain, unexplained weight loss, others Psychiatric: denies: anxiety, bipolar disorder, depression, hopeless, panic disorder, schizophrenia, sleepless, suicidal, others Physical Exam General Appearance: No Apparent Distress, Normal HEENT: Normal ENT Inspection, Pharynx Normal, TMs Normal Neck: Full Range of Motion, Non-Tender, Normal, Normal Inspection Respiratory: Chest Non-Tender, Lungs Clear, No Accessory Muscle Use, No Respiratory Distress, Normal Breath Sounds Cardiovascular: No Edema, No JVD, No Murmur, No Gallop, Normal Peripheral Pulses, Regular Rate/Rhythm Breast Exam: Deferred Gastrointestinal: No Organomegaly, Non Tender, No Pulsatile Mass, Normal Bowel Sounds, Soft Genitalia: Deferred Pelvic: Deferred Rectal: Deferred Extremities: Inflammation (right antecubital area), No calf tenderness, Normal capillary refill, Normal range of motion, Non-tender, No pedal edema Musculoskeletal : Apperance: Normal Neurologic: Alert, pipeman II-XII nml as Tested, No Motor Deficits, Normal Affect, Normal Mood, No Sensory Deficits Cerebellar Function: Normal Reflexes: Normal Skin: Dry, Normal Color, Warm Lymphatic: No Adenopathy Was a procedure done? Was a procedure done?: No Differential Dx Considerations may include: cellulitis, abscess, phlebitis X-Ray, Labs, Meds, VS Vital Signs Date Time Temp Pulse Resp B/P (MAP) Pulse Ox O2 Delivery O2 Flow Rate FiO2 04/21/24 19:19 98.5 118 20 107/68 (81) 100 Time of 1ST Reevaluation: 19:13 Reevaluation 1ST: Unchanged Patient Education/Counseling: Diagnosis, Treatment Family Education/Counseling: Diagnosis, Treatment Departure 1 Departure Time of Disposition: 20:17 (Patient with a phlebitis of her arm. We will discharge patient with Bactrim and outpatient follow up) Impression: Primary Impression: Phlebitis after infusion Qualified Codes: T80.1XXA - Vascular complications following infusion, transfusion and therapeutic injection, initial encounter; I80.9 - Phlebitis and thrombophlebitis of unspecified site Additional Impression: Constipation Qualified Codes: K59.00 - Constipation, unspecified Disposition: 01 HOME / SELF CARE / HOMELESS Condition: Stable Additional Instructions: You have phlebitis. This is irritation of the blood vessel after an IV placement. You were prescribed antibiotics. Please take these in addition to the antibiotics you are already on. For constipation you can take [id number] MiraLax. For pain you can take the followinam: Ibuprofen 400mg with food Noon: Acetaminophen 1000mg 4pm: Ibuprofen 400mg with food 8pm: Acetaminophen 1000mg You should follow up with your regular doctor within one week to ensure you are doing better. If your symptoms worsen or you have any other concerns then please return to the ER. e-Prescriptions Sulfamethoxazole W/Trimethopri (Bactrim Ds Tablet) 1 Tab Tb 1 TAB PO BID for 5 Days, #10 TAB Prov: ADEOLA COYNE MD 04/21/24 Discharged With: Self, Relative (Mother) Critical Care Note Critical Care Time?: No Stability Stability form required: No Heart Score Heart Score: Heart Score Response (Comments) Value History N/A 0 EKG N/A 0 Age N/A 0 Risk Factors N/A 0 Troponin N/A 0 Total 0 I personally scribed for ADEOLA COYNE MD ([email or web address]) on 04/21/24 at 19:17. Electronically submitted by Collins Norton ([facility]3]). ADEOLA COYNE MD Apr 21, 2024 19:17
[2024-04-21] MEDS ORDERED: BACDST PO (20:18)
[2024-04-21 22:10] VITALS: BP 109/58; PULSE 89; RESP 18; TEMP 98.4; O2SAT 95
[2024-04-21] MEDS: ACETAMINOPHEN 325 MG TAB PO ONE (22:36)
[2024-04-21] MEDS: SULFAMETHOX W/TRIMETH(800/160MG) DS TAB PO ONE (22:36)
[2024-04-21] MEDS: POLYETHYLENE GLYCOL 17 GM PWDR PO ONE (22:36)
== END 2024-04-21 22:22 | disposition home or self-care (01) ==
LOC: ER 18:20
DX: I80.8 Phlebitis and thrombophlebitis of other sites (principal); K59.00 Constipation, unspecified; Z90.49 Acquired absence of other specified parts of digestive tract; Z86.2 Personal history of diseases of the blood and blood-forming organs and certain disorders involving the immune mechanism; Z79.899 Other long term (current) drug therapy